=== PATIENT | male | born 1975 | race Caucasian/White ===

== ENCOUNTER 2022-07-28 16:38 | Emergency (ER) | payer MEDICAID ==
[~2022-07-28] VITALS: Ht 175.3 cm; Wt 91.0 kg
[2022-07-28 16:48] VITALS: BP 123/71
[2022-07-28] MEDS ORDERED: KETOROLAC 60MG/2ML VIAL IM STA (17:18)
[2022-07-28 18:45] LABS: HEMATOCRIT. 40.3 % (42.0-52.0); HEMOGLOBIN. 13.9 g/dL (14.0-18.0); MEAN CORPUSCULAR HEMOGLOBIN 32.1 pg (28.0-32.0); MEAN CORPUSCULAR VOLUME 93.3 fL (80.0-94.0); MEAN PLATELET VOLUME 7.3 fl (7.4-10.4); PLATELET 118 x1000/uL (130-400); RED BLOOD CELL COUNT 4.32 mill/uL (4.7-6.1); RED CELL DISTRIBUTION WIDTH 13.1 % (11.6-14.6)
[2022-07-28 18:46] LABS: CHLORIDE 100 mEq/L (98-107)
[2022-07-28 19:30] LABS: PLATELET ESTIMATE DECREASED
== END 2022-07-28 20:28 | disposition home or self-care (01) ==
LOC: ER 16:38
DX: B34.9 Viral infection, unspecified (principal); Z20.822 Contact with and (suspected) exposure to COVID-19
CPT/HCPCS: 36415; 71045; 80053; 85025; 87426; 87804; 96372; 99284; C9803; J1885